=== PATIENT | female | born 1965 | race Caucasian/White ===

== ENCOUNTER 2017-01-08 14:50 | Emergency (ER) | payer OTHER, MEDICARE ==
[~2017-01-08] VITALS: Ht 162.6 cm; Wt 119.3 kg
[~2017-01-08 14:50] MED LIST: ABILIFY 2MG2 MG PO; ABILIFY2 MG PO; CLONAZEPAM1 MG PO; CLONAZEPAM2 MG PO; DILAUDID2 M1 PO; DILAUDID2 MG PO; DULOXETINE30 MG PO; ESCITALOPRAM20 MG PO; FLEXERIL PO; GABAPENTIN100 MG PO; IBU800 MG PO; KLONOPIN1 MG PO; LEVOTHYROXIN0.137 MG PO; LEVOTHYROXIN0.175 MG PO; LEXAPRO20 M1 PO; LOPRESSOR50 MG PO; MAXIPIME1 GM IV; MEDROL DOSEPAK1 PA1 PO; MEDROL DOSEPAK1 PAC PO; MEDROL4 M2 PO; NYSTOP100000 U/G TOP; OXYBUTYNIN CHLO10 MG PO; OXYCODONE AND A1 TA7 PO; OXYCODONE HYDROC5 MG PO; PERCOCET 325 MG1 TAB PO; PERCOCET 5-3251 EACH PO; POTASSIUM CHLO20 ME1 PO; TOPROL XL 25MG25 MG PO; TRAZODONE50 MG PO; VANCOCIN IV
[2017-01-08 14:57] VITALS: BP 144/83
[2017-01-08] MEDS ORDERED: DILAUDID2 M1 PO (15:29)
--- NOTE | 2017-01-08 15:29 | ED NECK/BACK PAIN COMPLAINT ---
History of Present Illness General Chief Complaint: Low Back Pain/Injury Stated Complaint: LOWER BACK PAIN Source: patient Exam Limitations: no limitations Vital Signs & Intake/Output Vital Signs & Intake/Output Vital Signs Date Time Temp Pulse Resp B/P Pulse O2 O2 Flow FiO2 Ox Delivery Rate 01/08 1457 97.6 64 20 144/83 98 Room Air Room Air Allergies Coded Allergies: latex (Intermediate, SWELLING AND ITCHING 01/08/17) morphine (Intermediate, RASH 01/08/17) Reconcile Medications Aripiprazole (Abilify) 2 MG TABLET 2 MG PO DAILY MENTAL HEALTH (Reported) Clonazepam (Klonopin) 1 MG TAB 1 MG PO TID ANXIETY (Reported) Escitalopram Oxalate (Lexapro 20MG) 20 MG TABLET 20 MG PO DAILY MENTAL HEALTH (Reported) [FLEXERIL] 5 MG 1 TAB PO TID PRN PAIN Hydromorphone HCl (Dilaudid) 2 MG TABLET 1 TAB PO BIDP PRN luis armando through pain Hydromorphone HCl (Dilaudid) 2 MG TABLET 1 TAB PO Q6HR PRN BREAKTHROUGH PAIN Ibuprofen (Ibu) 800 MG TAB 800 MG PO TID PAIN (Reported) Levothyroxine Sodium 0.175 MG TAB 1 TAB PO DAILY AC THYROID (Reported) Methylprednisolone. (Medrol) 4 MG TAB.DS.PK 1 DP PO AD INFLAMMATION 6 on day 1 then reduce by one tablet daily until gone Metoprolol Tartrate (Lopressor) 50 MG TAB 50 MG PO DAILY HTN (Reported) Oxybutynin Chloride (Oxybutynin Chloride ER) 10 MG TAB.ER.24 1 TAB PO DAILY BLADDER (Reported) Oxycodone HCl/Acetaminophen (Percocet 5-325 MG Tablet) 5 MG-325 MG TABLET 1 TAB PO Q4-6 PRN PAIN Triage Note: PT TO ED WITH C/O CHRONIC BACK PAIN, GOING [facility] IN [place], TRIED OXCODONE GOT ITCHING, SWITCHED TO NORCO 5/325MG EVERY 8 HOURS,NOT WORKING, CALLED THE CLINIC AND TOLD TO COME TO THE ED. Triage Nurses Notes Reviewed? yes Onset: Gradual Timing: chronic Quality/Severity: moderate, severe Location: lumbar spine HPI: 51-year-old female with a history of 5 back surgeries in the past comes into emergency room for further evaluation of acute exacerbation of chronic low back pain. Patient reports after her first surgery she had a laminectomy and he got secondarily infected and formed an abscess. Patient had necrotic tissue and ended up getting 4 more surgeries. This happened 3 years ago. Patient sees pain management now and is on [place] for her pain. Patient reports that recently over the past week he has not been helping as much. Patient is due to be getting another pain medication added to control her pain. Pain is sharp. Lower back. Denies any motor weakness in the lower extremity. Patient reports that intermittently he has had some bowel incontinence for many months. Patient currently has no neurosurgeon. (ANGIE WASHINGTON) Past History Travel History Traveled to [place] past 21 day No Medical History Any Pertinent Medical History? see below for history Neurological: NONE EENT: NONE Cardiovascular: hypertension Respiratory: NONE Gastrointestinal: NONE Hepatic: NONE Renal: urinary incontinence Musculoskeletal: fibromyalgia, spinal stenosis, DEGENERATIVE DISC DISEASE Psychiatric: anxiety, depression, previous suicide attempt Endocrine: hypothyroidism Blood Disorders: NONE Cancer(s): NONE COUNSELING SPECIALIST/Reproductive: NONE History of MRSA: No History of VRE: No History of CDIFF: No Surgical History Surgical History: laminectomy ( with complications), L knee replacement, C- section x 2 Psychosocial History Who do you live with Other (see notes) What is your primary language Thai Tobacco Use: Current Daily Use Daily Tobacco Use Amount/Type: => 5 Cigarettes daily ETOH Use: denies use Illicit Drug Use: denies illicit drug use Family History Family History, If Any: FATHER (CABG). , Age 60+; Cause: Myocardial infarct. MOTHER FH: bladder cancer FH: dementia Hx Contributory? No (ANGIE WASHINGTON) Review of Systems Review of Systems Constitutional: Reports: no symptoms. Eyes: Reports: no symptoms. Ears, Nose, Throat, Mouth: Reports: no symptoms. Respiratory: Reports: no symptoms. Cardiovascular: Reports: no symptoms. Gastrointestinal/Abdominal: Reports: no symptoms. Musculoskeletal: Reports: see HPI. Skin: Reports: no symptoms. Neurological/Psychological: Reports: no symptoms. All Other Systems: Reviewed and Negative (ANGIE WASHINGTON) Physical Exam Physical Exam General Appearance: well developed/nourished, mild distress Head: atraumatic Eyes: Bilateral: normal appearance, EOMI. Ears, Nose, Throat, Mouth: hearing grossly normal, moist mucous membrane Neck: normal inspection, full range of motion Respiratory: normal breath sounds, no respiratory distress Cardiovascular: regular rate/rhythm Back: normal inspection, paraspinal tenderness Extremities: normal range of motion Motor: Deficit L4 Right: No Deficit L4 Left: No Deficit L5 Right: No Deficit L5 Left: No Deficit S1 Right: No Deficit S1 Right: No Neurologic/Psych: awake, alert, oriented x 3, normal mood/affect Skin: intact, normal color, warm/dry (ANGIE WASHINGTON) Progress Differential Diagnosis: cauda equina syn, herniated disc, myofascial strain, pyelo/UTI, sciatica, spinal cord inj, thoracic outlet syn, ureterolithiasis Plan of Care: Current Medications Sig/Misty Start time Last Medication Dose Stop Time Status Admin Hydromorphone HCl 2 MG ONCE ONE 01/08 1530 UNVr (Dilaudid) 01/08 1531 Comments: 01/08/2017 3:48:39 PM Patient clinically looks well. Patient is nontoxic-appearing. Patient is in no apparent distress. There is no clinical signs of any infection. Patient has chronic pain to this region. At this time I do not feel diagnostic imaging is necessary. I offered it to the patient but she declined and agrees with plan of care. Patient needs follow-up with a new neurosurgeon. Patient had an MRI done about a year ago. No motor deficits in lower extremity. Patient understands and agrees with plan of care. (ANGIE WASHINGTON) Departure Departure Disposition: HOME OR SELF CARE Condition: Stable Clinical Impression Primary Impression: Acute exacerbation of chronic low back pain Referrals: MEÑO PENN,SHANI DANIEL MD,ELISSA (PCP/Family) Additional Instructions: Take Dilaudid tabs for breakthrough pain. Contact her pain management doctor. If symptoms persist get repeat MRI of lower back. Return if any motor weakness in the lower extremity, fever, vomitingor any other concerns worsening symptoms. Departure Forms: Customer Survey General Discharge Information Prescriptions: Current Visit Scripts Hydromorphone HCl (Dilaudid) 1 TAB PO BIDP PRN luis armando through pain #15 TAB (ANGIE WASHINGTON) PA/DIRECTOR ADVANCED Co-Sign Statement Statement: ED Attending supervision documentation- [] I saw and evaluated the patient. I have also reviewed all the pertinent lab results and diagnostic results. I agree with the findings and the plan of care as documented in the PA's/DIRECTOR ADVANCED's documentation. [X] I have reviewed the ED Record and agree with the PA's/DIRECTOR ADVANCED's documentation. [] Additions or exceptions (if any) to the PAs/DIRECTOR ADVANCED's note and plan are summarized below: [] (JESÚS PENN,ELI Darling)
== END 2017-01-08 16:02 ==
LOC: ERH 14:50
DX: M54.5 Low back pain (principal)
CPT/HCPCS: 96372

== ENCOUNTER 2017-04-05 19:52 | Emergency (ER) | payer OTHER, MEDICARE ==
[~2017-04-05] VITALS: Ht 167.6 cm; Wt 81.6 kg
[2017-04-05] MEDS ORDERED: OXYCODONE-ACET1 EAC1 PO (20:25)
[2017-04-05] MEDS ORDERED: LEVOTHYROXINE200 MC1 PO (20:26)
[2017-04-05] MEDS ORDERED: LEVOTHYROXINE25 MCG PO (20:26)
[2017-04-05] MEDS ORDERED: ESCITALOPRAM OX10 MG PO (20:37)
[2017-04-05] MEDS ORDERED: CARBIDOPA-LEVO1 EA10 PO (20:38)
[2017-04-05] MEDS ORDERED: METOPROLOL SUCC50 M2 PO (20:38)
[2017-04-05] MEDS ORDERED: FAMOTIDINE40 M1 PO (20:38)
[2017-04-05] MEDS ORDERED: FERROUS SULFAT325 M3 PO (20:39)
[2017-04-05] MEDS ORDERED: FOLIC ACID0.4 M1 PO (20:39)
--- NOTE | 2017-04-05 20:42 | ED GENERAL ADULT ---
History of Present Illness General Chief Complaint: Syncope and Near-Syncope Stated Complaint: ? SYNCOPAL EPISODE Source: patient Exam Limitations: no limitations Vital Signs & Intake/Output Vital Signs & Intake/Output Vital Signs Date Time Temp Pulse Resp B/P B/P Pulse O2 O2 Flow FiO2 Mean Ox Delivery Rate 04/06 0119 97.2 70 18 123/70 97 Room Air 04/05 2245 98.4 81 18 148/76 98 Room Air 04/05 2018 Room Air 04/05 2005 98.2 69 18 167/82 97 Room Air ED Intake and Output 04/06 0000 04/05 1200 Intake Total 0 Output Total Balance 0 Intake, Oral 0 Patient 180 lb Weight Allergies Coded Allergies: latex (Intermediate, SWELLING AND ITCHING 01/08/17) morphine (Intermediate, RASH 01/08/17) Reconcile Medications Aripiprazole (Abilify) 2 MG TABLET 1 TAB PO DAILY MENTAL HEALTH (Reported) Carbidopa/Levodopa (Carbidopa-Levo ER 25-100 Tab) 25 MG-100 MG TABLET.ER 1 TAB PO DAILY RLS (Reported) Dicyclomine Hydrochloride (Bentyl) 10 MG CAPSULE 1 CAP PO TID PRN abdominal pain Escitalopram Oxalate 10 MG TABLET 1 TAB PO DAILY MENTAL HEALTH (Reported) Famotidine 40 MG TABLET 1 TAB PO DAILY GI (Reported) Ferrous Sulfate 325 MG (65 MG IRON) TABLET 1 TAB PO DAILY SUPPLEMENT ( Reported) Folic Acid 0.4 MG TABLET 1 TAB PO DAILY SUPPLEMENT (Reported) Levothyroxine Sodium 200 MCG TABLET 1 TAB PO DAILY THYROID (Reported) Levothyroxine Sodium 25 MCG TABLET 1 TAB PO DAILY THYROID (Reported) Metoclopramide HCl (Reglan) 10 MG TABLET 1 TAB PO TID PRN nausea 30 minutes before meals and bedtime Metoprolol Succinate 50 MG TAB.ER.24H 1 TAB PO DAILY HEART/BP (Reported) Oxycodone HCl/Acetaminophen (Oxycodone-Acetaminophen 10-325) 10 MG-325 MG TABLET 1 TAB PO Q6H PAIN (Reported) Triage Note: PT BIBA FROM HOME C/O NAUSEA/VOMITING ALL DAY. STATES HAS CHRONIC BACK PAIN AND HAS NOT BEEN TAKING ANY OF HER PERCOCET TODAY D/T VOMITING. ALSO REPORTS NEAR SYNCOPE EPISODE WHILE VOMITING. Triage Nurses Notes Reviewed? yes HPI: 51-year-old female with a history of hypertension, hypothyroid, chronic back pain, spinal stenosis, degenerative disc disease, fibromyalgia and anxiety, depression presenting status post syncopal episode around 7 PM tonight. Started with nausea, vomiting, diarrhea, diffuse nonfocal abdominal pain around 8 AM this morning. Denies fevers, dysuria, vaginal discharge/bleeding. Has had no by mouth intake today, intermittent episodes of lightheadedness with walking. Attempted to ambulate bathroom and then woke up on the floor. Denies any preceding symptoms, no lightheadedness, dizziness, visual changes, shortness of breath, chest pain. Does not remember passing out, just her members waking up on the floor. Denies any headache, blurry vision, confusion, daughter at bedside and denies any altered mental status since the syncopal episode. (ELLE LOPEZ,LINO) Past History Travel History Traveled to [place] past 21 day No Medical History Any Pertinent Medical History? see below for history Neurological: NONE EENT: NONE Cardiovascular: hypertension Respiratory: NONE Gastrointestinal: NONE Hepatic: NONE Renal: urinary incontinence Musculoskeletal: fibromyalgia, spinal stenosis, DEGENERATIVE DISC DISEASE Psychiatric: anxiety, depression, previous suicide attempt Endocrine: hypothyroidism Blood Disorders: NONE Cancer(s): NONE RN CARDIAC CATH/Reproductive: NONE History of MRSA: No History of VRE: No History of CDIFF: No Surgical History Surgical History: laminectomy ( with complications), L knee replacement, C- section x 2 Psychosocial History Who do you live with Other (see notes) What is your primary language Lithuanian Tobacco Use: Never used ETOH Use: denies use Family History Family History, If Any: FATHER (CABG). , Age 60+; Cause: Myocardial infarct. MOTHER FH: bladder cancer FH: dementia Hx Contributory? No (LINO ALMEIDA PA-C) Review of Systems Review of Systems Constitutional: Denies: chills, diaphoresis, fever, malaise, weakness. EENTM: Reports: no symptoms. Respiratory: Reports: no symptoms. Cardiovascular: Reports: syncope. Denies: chest pain, edema, palpitations. GI: Reports: abdominal pain, diarrhea, nausea, vomiting. Genitourinary: Denies: discharge, dysuria, frequency, urgency. Musculoskeletal: Reports: back pain. Denies: joint pain, muscle pain. Skin: Denies: rash. Neurological/Psychological: Denies: headache, numbness, tingling, tremors. (LINO ALMEIDA PA-C) Physical Exam Physical Exam General Appearance: well developed/nourished, no apparent distress Head: atraumatic Ears, Nose, Throat: normal ENT inspection Neck: normal inspection, supple, no LAD Respiratory: normal breath sounds, lungs clear Cardiovascular: regular rate/rhythm Gastrointestinal: normal bowel sounds, soft, tenderness (diffuse, non-focal), no rebound or guarding, no CVAT Back: normal inspection, normal range of motion, no vertebral tenderness Extremities: no edema Core Measures ACS in differential dx? No CVA/TIA Diagnosis: No Severe Sepsis Present: No Septic Shock Present: No (ELLE LOPEZ,LINO) Progress Differential Diagnoses I considered the following diagnoses in my evaluation of the patient: [ Gastroenteritis versus food poisoning versus pancreatitis versus biliary versus appendicitis versus colitis versus UTI versus pyelonephritis. Differentials for syncope include cardiac arrhythmia versus cardiac valvular disease versus OH versus PE versus vasovagal versus anemia versus TIA/CVA versus intracranial hemorrhage] Plan of Care: Orders Procedure Date/time Status TROPONIN LEVEL 04/05 2345 Complete Add-on Test (ER Only) 04/05 2054 Active TROPONIN LEVEL 04/05 2045 Complete URINE 04/05 2035 Complete URINALYSIS 04/05 2035 Complete LIPASE 04/05 2035 Complete COMPREHENSIVE METABOLIC PANEL 04/05 2035 Complete CBC WITHOUT DIFFERENTIAL 04/05 2035 Complete AMYLASE 04/05 2035 Complete EKG 04/05 2007 Active Current Medications Sig/Misty Start time Last Medication Dose Stop Time Status Admin Famotidine 20 MG ONCE ONE 04/05 2230 CAN (Pepcid) 04/05 2231 Laboratory Tests 04/06/17 0030: Troponin I 0.01 04/05/172199: Urinalysis LIGHT H, Urine Color YEL, Urine Clarity CLEAR, Urine pH 6.0, Ur Specific [place] 1.025, Urine Protein 30 H, Urine Ketones NEG, Urine Nitrite NEG, Urine Bilirubin NEG, Urine Urobilinogen 0.2, Ur Leukocyte Esterase NEG, Ur Microscopic SEDIMENT EXAMINED, Urine RBC FEW H, Urine WBC RARE, Ur Epithelial Cells MOD H, Urine Mucus MANY H, Urine Hemoglobin NEG, Urine Glucose NEG, Urine Test NEGATIVE 04/05/172051: Troponin I Cancelled 04/05/172044: Anion Gap 12, Estimated GFR > 60, BUN/Creatinine Ratio 15.7, Glucose 110 H, Calcium 10.0, Total Bilirubin 0.5, AST 22, ALT 37, Alkaline Phosphatase 113, Troponin I < 0.01, Total Protein 8.4 H, Albumin 4.5, Globulin 3.9, Albumin/ Globulin Ratio 1.2, Amylase 36, Lipase 79, CBC w Diff NO MAN DIFF REQ, RBC 4.65, MCV 85.1, MCH 27.2, RDW 25.0 H, MPV 8.6, Gran % 70.5, Lymphocytes % 23.8, Monocytes % 5.1, Eosinophils % 0.1, Basophils % 0.5, Absolute Granulocytes 6.2, Absolute Lymphocytes 2.1, Absolute Monocytes 0.4, Absolute Eosinophils 0, Absolute Basophils 0, PUBS MCHC 31.9 L EKG with normal sinus rhythm, initial troponin negative. All other labs within normal limits and urine unremarkable. Patient likely with viral gastroenteritis. Suspect syncope from lack of po intake throughout the day. Will repeat a second troponin to ensure no elevation. (LINO ALMEIDA PA-C) Initial ED EKG: NSR (rate 97) (LINO ALMEIDA PA-C) Departure Departure Disposition: HOME OR SELF CARE Condition: Stable Referrals: ELISSA DANIEL MD (PCP/Family) Additional Instructions: Take 10 mg of Reglan every 8 hours as needed for nausea. Take 10 mg of Bentyl every 8 hours as needed for abdominal pain. Take adequate fluid intake. Follow -up with your primary care provider in the next 24 hours for reevaluation. Her turn to the ED for any new or worsening symptoms. Departure Forms: Customer Survey General Discharge Information Prescriptions: Current Visit Scripts Metoclopramide HCl (Reglan) 1 TAB PO TID PRN nausea 3 Days 30 minutes before meals and bedtime Dicyclomine Hydrochloride (Bentyl) 1 CAP PO TID PRN abdominal pain 3 Days (LINO ALMEIDA PA-C) Departure Clinical Impression Primary Impression: Abdominal pain Qualifiers: Abdominal location: generalized Qualified Code: R10.84 - Generalized abdominal pain Secondary Impressions: Nausea vomiting and diarrhea Syncope Qualifiers: Syncope type: vasovagal syncope Qualified Code: R55 - Syncope and collapse PA/GEOLOGICAL SCOUT Co-Sign Statement Statement: ED Attending supervision documentation- [X] I saw and evaluated the patient. I have also reviewed all the pertinent lab results and diagnostic results. I agree with the findings and the plan of care as documented in the PA's/GEOLOGICAL SCOUT's documentation. [X] I have reviewed the ED Record and agree with the PA's/GEOLOGICAL SCOUT's documentation. [] Additions or exceptions (if any) to the PAs/GEOLOGICAL SCOUT's note and plan are summarized below: [] (JESÚS PENN,ELI Darling) Critical Care Note Critical Care Note Critical Care Time: non-applicable (ELLE LOPEZ,LINO)
[2017-04-05 21:22] LABS: ABSOLUTE BASOPHIL COUNT 0 /CUMM (0.0-0.2); ABSOLUTE EOSINOPHIL COUNT 0 /CUMM (0.0-0.7); ABSOLUTE GRANULOCYTE CT 6.2 /CUMM (1.4-6.5); ABSOLUTE LYMPH COUNT 2.1 /CUMM (1.2-3.4); ABSOLUTE MONOCYTE COUNT 0.4 /CUMM (0.10-0.60); BASOPHIL % 0.5 % (0.0-2.0); EOSINOPHIL % 0.1 % (0-5); HEMATOCRIT 39.5 % (37-47); MEAN CORPUSCULAR HGB 27.2 PG (27.0-31.0); MEAN CORPUSCULAR HGB CONC 31.9 G/DL (33.0-37.0); MEAN CORPUSCULAR VOLUME 85.1 FL (81.0-99.0); MEAN PLATELET VOLUME 8.6 FL (7.4-10.4); PLATELET COUNT 194 /CUMM (130-400); RED BLOOD CELL CT 4.65 /CUMM (4.20-5.40); WHITE BLOOD CELL COUNT 8.8 /CUMM (4.8-10.8)
[2017-04-05 21:28] LABS: GRANULOCYTE % 70.5 % (42.2-75.2)
[2017-04-05] MEDS ORDERED: BENTYL10 M1 PO (23:19)
[2017-04-05] MEDS ORDERED: REGLAN10 M1 PO (23:19)
[2017-04-06 01:19] VITALS: BP 123/70
[2017-04-06] MEDS ORDERED: ZOFRAN ODT4 M1 SL (18:21)
[2017-04-06] MEDS ORDERED: LEVSIN0.125 M1 PO (18:21)
== END 2017-04-06 01:21 ==
LOC: ERH 19:52
PROVIDERS: Physician Assistant
DX: R10.84 Generalized abdominal pain (principal); R11.2 Nausea with vomiting, unspecified; R19.7 Diarrhea, unspecified
CPT/HCPCS: 81001; 81025; 93005; 93010; 96361; 96374; 96375; 96376; J2405; J2765

== ENCOUNTER 2017-04-06 16:26 | Emergency (ER) | payer OTHER, MEDICARE ==
[~2017-04-06] VITALS: Ht 162.6 cm; Wt 81.6 kg
[~2017-04-06 16:26] MED LIST changes: +BENTYL10 M1 PO; +CARBIDOPA-LEVO1 EA10 PO; +ESCITALOPRAM OX10 MG PO; +FAMOTIDINE40 M1 PO; +FERROUS SULFAT325 M3 PO; +FOLIC ACID0.4 M1 PO; +LEVOTHYROXINE200 MC1 PO; +LEVOTHYROXINE25 MCG PO; +METOPROLOL SUCC50 M2 PO; +OXYCODONE-ACET1 EAC1 PO; +REGLAN10 M1 PO
--- NOTE | 2017-04-06 17:08 | ED GI/GU/ABDOMINAL COMPLAINT ---
History of Present Illness General Chief Complaint: Nausea, Vomiting, Diarrhea Stated Complaint: NVD,SCHULTZ SEEN HERE YEST Source: patient Exam Limitations: no limitations Vital Signs & Intake/Output Vital Signs & Intake/Output Vital Signs Date Time Temp Pulse Resp B/P B/P Pulse O2 O2 Flow FiO2 Mean Ox Delivery Rate 04/06 1848 97.6 100 20 138/80 97 Room Air 04/06 1631 99.1 94 18 161/112 97 Room Air ED Intake and Output 04/07 0000 04/06 1200 Intake Total Output Total Balance Patient 180 lb Weight Weight Reported by Patient Measurement Method Allergies Coded Allergies: latex (Intermediate, SWELLING AND ITCHING 01/08/17) morphine (Intermediate, RASH 01/08/17) Reconcile Medications Aripiprazole (Abilify) 2 MG TABLET 1 TAB PO DAILY MENTAL HEALTH (Reported) Carbidopa/Levodopa (Carbidopa-Levo ER 25-100 Tab) 25 MG-100 MG TABLET.ER 1 TAB PO DAILY RLS (Reported) Dicyclomine Hydrochloride (Bentyl) 10 MG CAPSULE 1 CAP PO TID PRN abdominal pain Escitalopram Oxalate 10 MG TABLET 1 TAB PO DAILY MENTAL HEALTH (Reported) Famotidine 40 MG TABLET 1 TAB PO DAILY GI (Reported) Ferrous Sulfate 325 MG (65 MG IRON) TABLET 1 TAB PO DAILY SUPPLEMENT ( Reported) Folic Acid 0.4 MG TABLET 1 TAB PO DAILY SUPPLEMENT (Reported) Hyoscyamine (Levsin) 0.125 MG TABLET 1 TAB PO Q4 PRN ABDOMINAL SPASMS Levothyroxine Sodium 200 MCG TABLET 1 TAB PO DAILY THYROID (Reported) Levothyroxine Sodium 25 MCG TABLET 1 TAB PO DAILY THYROID (Reported) Metoclopramide HCl (Reglan) 10 MG TABLET 1 TAB PO TID PRN nausea 30 minutes before meals and bedtime Metoprolol Succinate 50 MG TAB.ER.24H 1 TAB PO DAILY HEART/BP (Reported) Ondansetron (Zofran Odt) 4 MG TAB.RAPDIS 1 TAB SL TID PRN NAUSEA Oxycodone HCl/Acetaminophen (Oxycodone-Acetaminophen 10-325) 10 MG-325 MG TABLET 1 TAB PO Q6H PAIN (Reported) Triage Note: 51 YO FEMALE TO TRIAGE C/O NVD SINCE YESTERDAY. ALSO C/O MANDO. STATES SHE WAS SEEN HIS YESTERDAY FOR SAME AND FELT BETTER UPON DISCHARGE. WAS GIVEN BENTYL AND REGLAN BUT HAS BEEN VOMITING THEM UP AT HOME. C/O ABD PAIN ALL OVER ABD. Triage Nurses Notes Reviewed? yes ? N Is pt currently ? No Onset: Gradual Duration: day(s): (2) Timing: no prior history Quality/Severity: sharpness Severity Numbers: 8 Location: generalized abdomen Radiation: no radiation Activities at Onset: none Prior Abdominal Problems: none No Modifying Factors: none HPI: Patient is a 51-year-old female with history of chronic back pain, chronic urinary incontinence presenting to the emergency department with chief complaint of generalized abdominal pain, nausea vomiting and diarrhea that started yesterday morning around 8 AM. She was seen and evaluated here in the emergency department yesterday and was released around 1 AM this morning. She was feeling slightly improved and when they discharged her but has been unable to keep anything down. Nothing seems to make it better or worse. She also reports a moderate frontal throbbing headache. No visual changes. Denies any urinary frequency or urgency or dysuria. No blood in the vomit or diarrhea. No sick contacts or recent travel. (PREM STEVEN) Past History Travel History Traveled to [place] past 21 day No Medical History Any Pertinent Medical History? 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 , Age 60+; Cause: Myocardial infarct. MOTHER FH: bladder cancer FH: dementia Hx Contributory? No (PREM STEVEN) Review of Systems Review of Systems Constitutional: Reports: no symptoms. Comments Review of systems: See HPI, All other systems negative. Constitutional, no chills fever or weight loss HEENT: No visual changes no sore throat no congestion Cardiovascular: No chest pain ,palpitation Skin, no jaundice no rashes Respiratory: No dyspnea cough sputum or hemoptysis GI: POS NAUSEA, VOMITING AND DIARRHEA : No dysuria No hematuria Muscle skeletal: no neck pain, Neurologic: No numbness no confusion Psych: No stress anxiety Immunology: No splenectomy or history of AIDS (JUANIS OLIVERA,PREM) Physical Exam Physical Exam General Appearance: well developed/nourished, no apparent distress, alert, comfortable Gastrointestinal: normal bowel sounds, soft, tenderness Comments: Well-developed well-nourished person in no acute distress HEENT: Pupils equally round and reactive to light and accommodation. Nose is atraumatic. Pharynx normal. No swelling or edema. DRY ORAL MUCOSA. Neck:NORMAL INSPECTION Back: Nontender, no CVA tenderness. Cardiovascular: Regular rate and rhythms no murmurs rubs or gallops, normal JVP Respiratory: Chest nontender. No respiratory distress.breath sounds clear to auscultation bilaterally Abdomen: Soft, DIFFUSE TENDERNESS WITH MILD GAURDING,nondistended, no appreciable organomegaly. Normal bowel sounds. No ascites Extremity: No edema Neuro: Alert oriented x3 Skin: No appreciable rash on exposed skin, skin is warm and dry. Psych: Mood and affect is normal, memory and judgment is normal. Core Measures ACS in differential dx? No Severe Sepsis Present: No Septic Shock Present: No (PREM STEVEN) Progress Differential Diagnosis: appendicitis, biliary colic, cholecystitis, diverticulitis, gastritis, ischemic bowel, ovarian cyst, ovarian torsion, peptic ulcer, PUD/GERD, UTI/pyelo, VIRAL GASTROENTERITIS Plan of Care: Orders Procedure Date/time Status URINALYSIS 04/06 1708 Complete LIPASE 04/06 1708 Complete LACTIC ACID 04/06 1708 Complete COMPREHENSIVE METABOLIC PANEL 04/06 1708 Complete CBC WITHOUT DIFFERENTIAL 04/06 1708 Complete AMYLASE 04/06 1708 Complete Laboratory Tests 04/06/172007: Lactic Acid Cancelled 04/06/17 1730: Urine Color YEL, Urine Clarity HAZY H, Urine pH 5.5, Ur Specific [place] 1.020, Urine Protein TRACE H, Urine Ketones NEG, Urine Nitrite NEG, Urine Bilirubin NEG, Urine Urobilinogen 0.2, Ur Leukocyte Esterase NEG, Ur Microscopic SEDIMENT EXAMINED, Urine RBC RARE, Urine WBC 3-5 H, Ur Epithelial Cells MANY H, Urine Bacteria FEW H, Urine Hemoglobin TRACE-INTACT, Urine Glucose NEG 04/06/17 1710: Anion Gap 13, Estimated GFR > 60, BUN/Creatinine Ratio 15.0, Glucose 129 H, Lactic Acid 1.6, Calcium 9.6, Total Bilirubin 0.5, AST 36, ALT 40, Alkaline Phosphatase 113, Total Protein 8.8 H, Albumin 4.5, Globulin 4.3 H, Albumin/ Globulin Ratio 1.0 L, Amylase 45, Lipase 148, CBC w Diff NO MAN DIFF REQ, RBC 4.51, MCV 86.0, MCH 27.0, RDW 24.6 H, MPV 8.0, Gran % 69.1, Lymphocytes % 23.3, Monocytes % 5.2, Eosinophils % 1.9, Basophils % 0.5, Absolute Granulocytes 7.1 H, Absolute Lymphocytes 2.4, Absolute Monocytes 0.5, Absolute Eosinophils 0.2, Absolute Basophils 0.1, PUBS MCHC 31.4 L Diagnostic Imaging: Viewed by Me: CT Scan. Discussed w/RAD: CT Scan. Radiology Impression: PATIENT: VADIM BRYSON PRESENT AGE: 51 PATIENT ACCOUNT NO: [id number] : 64 LOCATION: [facility] ORDERING PHYSICIAN: PREM OLIVERA SERVICE DATE: 04/06/17 EXAM TYPE: CAT - CT ABD & PELVIS W IV CONTRAST EXAMINATION: CT ABDOMEN AND PELVIS WITH CONTRAST CLINICAL INFORMATION: Nausea, vomiting, diarrhea. Worsening pain. COMPARISON: Pelvic CT 04/15/2016. TECHNIQUE: Multidetector volumetric imaging was performed of the abdomen and pelvis before and after the IV administration of 94 mL of Optiray 320 intravenous contrast. Sagittal and coronal reformatted images were obtained on the technologist's workstation. DLP: 1294 mGy-cm FINDINGS: LUNG BASES: The visualized lung bases are unremarkable. LIVER, GALLBLADDER, AND BILIARY TREE: The liver is normal in size, shape, and attenuation. No focal hepatic lesion or biliary ductal dilatation is present. The gallbladder is unremarkable with no evidence of radiopaque gallstones, gallbladder wall thickening, or obvious pericholecystic inflammatory changes. PANCREAS: Unremarkable. SPLEEN: Unremarkable. ADRENAL GLANDS: Unremarkable. KIDNEYS AND URETERS: The kidneys are normal in size, shape, and attenuation. No hydronephrosis, hydroureter, or calculi seen. No perinephric stranding. BLADDER: Unremarkable. GASTROINTESTINAL TRACT: The stomach is unremarkable. Small duodenal diverticulum noted. The remainder of the small bowel is unremarkable. No dilated loops of bowel or evidence of obstruction. There is colonic diverticulosis without evidence of diverticulitis. A majority of the colon is decompressed which limits evaluation for wall thickening. No significant adjacent inflammatory changes. No free air or free fluid. ABDOMINAL WALL: No significant hernia is appreciated. LYMPH NODES: Normal. VASCULAR: Unremarkable. PELVIC VISCERA: The uterus and adnexa are unremarkable. OSSEOUS STRUCTURES: No acute or suspicious osseous abnormality. IMPRESSION: No acute findings of the abdomen or pelvis. No obstruction. Diverticulosis without diverticulitis. Decompression of the colon limits evaluation for wall thickening, but no acute adjacent inflammatory changes are seen. DICTATED BY: DEJAH BUTLER MD Initial ED EKG: none Comments: 04/06/2017 6:21:44 PM patient feeling much improved after fluids, pain medication and antinausea medication. Patient tolerating by mouth. She was informed of all lab work results and imaging study results. Likely viral in nature. Patient will be sent home with Levsin prescription as well as Zofran, both sublingual tablets. She'll return for any worsening symptoms. She'll increase diET tolerated. Blood pressures likely elevated secondary to pain. We will reassess prior to discharge. Repeat blood pressure is 138/80. (JUANIS OLIVERA,PREM) Departure Departure Disposition: HOME OR SELF CARE Condition: Stable Clinical Impression Primary Impression: Nausea and vomiting Qualifiers: Vomiting type: unspecified Vomiting Intractability: non-intractable Qualified Code: R11.2 - Nausea with vomiting, unspecified Secondary Impressions: Diarrhea Qualifiers: Diarrhea type: unspecified type Qualified Code: R19.7 - Diarrhea, unspecified Hypertension Qualifiers: Hypertension type: essential hypertension Qualified Code: I10 - Essential (primary) hypertension Referrals: ELISSA DANIEL MD (PCP/Family) Additional Instructions: Follow-up with your primary care physician call to make an appointment. Increase fluids. Take Levsin and Zofran as prescribed. Return for worsening symptoms or concerns. Departure Forms: Customer Survey General Discharge Information Prescriptions: Current Visit Scripts Hyoscyamine (Levsin) 1 TAB PO Q4 PRN ABDOMINAL SPASMS #40 TAB Ondansetron (Zofran Odt) 1 TAB SL TID PRN NAUSEA #10 TAB (PREM STEVEN) PA/CLERICAL ASSIGNER Co-Sign Statement Statement: ED Attending supervision documentation- [] I saw and evaluated the patient. I have also reviewed all the pertinent lab results and diagnostic results. I agree with the findings and the plan of care as documented in the PA's/CLERICAL ASSIGNER's documentation. [X] I have reviewed the ED Record and agree with the PA's/CLERICAL ASSIGNER's documentation. [] Additions or exceptions (if any) to the PAs/CLERICAL ASSIGNER's note and plan are summarized below: [] (AGNES PENN,CONNIE)
[2017-04-06 17:19] LABS: ABSOLUTE BASOPHIL COUNT 0.1 /CUMM (0.0-0.2); ABSOLUTE EOSINOPHIL COUNT 0.2 /CUMM (0.0-0.7); ABSOLUTE GRANULOCYTE CT 7.1 /CUMM (1.4-6.5); ABSOLUTE LYMPH COUNT 2.4 /CUMM (1.2-3.4); ABSOLUTE MONOCYTE COUNT 0.5 /CUMM (0.10-0.60); BASOPHIL % 0.5 % (0.0-2.0); EOSINOPHIL % 1.9 % (0-5); GRANULOCYTE % 69.1 % (42.2-75.2); HEMATOCRIT 38.8 % (37-47); MEAN CORPUSCULAR HGB CONC 31.4 G/DL (33.0-37.0); PLATELET COUNT 187 /CUMM (130-400); RBC DISTRIBUTION WIDTH 24.6 % (11.5-14.5); RED BLOOD CELL CT 4.51 /CUMM (4.20-5.40); WHITE BLOOD CELL COUNT 10.2 /CUMM (4.8-10.8)
--- NOTE | 2017-04-06 17:37 | CT SCAN REPORT ---
EXAMINATION: CT ABDOMEN AND PELVIS WITH CONTRAST CLINICAL INFORMATION: Nausea, vomiting, diarrhea. Worsening pain. COMPARISON: Pelvic CT 04/15/2016. TECHNIQUE: Multidetector volumetric imaging was performed of the abdomen and pelvis before and after the IV administration of 94 mL of Optiray 320 intravenous contrast. Sagittal and coronal reformatted images were obtained on the technologist's workstation. DLP: 1294 mGy-cm FINDINGS: LUNG BASES: The visualized lung bases are unremarkable. LIVER, GALLBLADDER, AND BILIARY TREE: The liver is normal in size, shape, and attenuation. No focal hepatic lesion or biliary ductal dilatation is present. The gallbladder is unremarkable with no evidence of radiopaque gallstones, gallbladder wall thickening, or obvious pericholecystic inflammatory changes. PANCREAS: Unremarkable. SPLEEN: Unremarkable. ADRENAL GLANDS: Unremarkable. KIDNEYS AND URETERS: The kidneys are normal in size, shape, and attenuation. No hydronephrosis, hydroureter, or calculi seen. No perinephric stranding. BLADDER: Unremarkable. GASTROINTESTINAL TRACT: The stomach is unremarkable. Small duodenal diverticulum noted. The remainder of the small bowel is unremarkable. No dilated loops of bowel or evidence of obstruction. There is colonic diverticulosis without evidence of diverticulitis. A majority of the colon is decompressed which limits evaluation for wall thickening. No significant adjacent inflammatory changes. No free air or free fluid. ABDOMINAL WALL: No significant hernia is appreciated. LYMPH NODES: Normal. VASCULAR: Unremarkable. PELVIC VISCERA: The uterus and adnexa are unremarkable. OSSEOUS STRUCTURES: No acute or suspicious osseous abnormality. IMPRESSION: No acute findings of the abdomen or pelvis. No obstruction. Diverticulosis without diverticulitis. Decompression of the colon limits evaluation for wall thickening, but no acute adjacent inflammatory changes are seen.
[2017-04-06] MEDS ORDERED: LEVSIN0.125 M1 PO (18:21)
[2017-04-06] MEDS ORDERED: ZOFRAN ODT4 M1 SL (18:21)
[2017-04-06 18:48] VITALS: BP 138/80
== END 2017-04-06 19:16 ==
LOC: ERH 16:26
PROVIDERS: Physician Assistant
DX: R11.2 Nausea with vomiting, unspecified (principal); R19.7 Diarrhea, unspecified; I10 Essential (primary) hypertension; Z72.0 Tobacco use
CPT/HCPCS: 74177; 81001; 96361; 96374; 96375; 96376; J2405; J2765

== ENCOUNTER 2017-04-07 12:12 | Emergency (ER) | payer OTHER, MEDICARE ==
[~2017-04-07] VITALS: Ht 162.6 cm; Wt 127.0 kg
[~2017-04-07 12:12] MED LIST changes: +LEVSIN0.125 M1 PO; +ZOFRAN ODT4 M1 SL
--- NOTE | 2017-04-07 12:30 | ED GI/GU/ABDOMINAL COMPLAINT ---
History of Present Illness General Chief Complaint: Nausea, Vomiting, Diarrhea Stated Complaint: NVD, SEEN HERE YESDTERDAY AND DAY BEFORE FOR SAME Source: patient, family, old records Exam Limitations: no limitations Vital Signs & Intake/Output Vital Signs & Intake/Output ED Intake and Output 04/08 0000 04/07 1200 Intake Total 1100 Output Total Balance 1100 Intake, IV 1100 Patient 280 lb Weight Weight Reported by Patient Measurement Method Allergies Coded Allergies: latex (Intermediate, SWELLING AND ITCHING 01/08/17) morphine (Intermediate, RASH 01/08/17) Reconcile Medications Aripiprazole (Abilify) 2 MG TABLET 1 TAB PO DAILY MENTAL HEALTH (Reported) Carbidopa/Levodopa (Carbidopa-Levo ER 25-100 Tab) 25 MG-100 MG TABLET.ER 1 TAB PO DAILY RLS (Reported) Dicyclomine Hydrochloride (Bentyl) 10 MG CAPSULE 1 CAP PO TID PRN abdominal pain Escitalopram Oxalate 10 MG TABLET 1 TAB PO DAILY MENTAL HEALTH (Reported) Famotidine 40 MG TABLET 1 TAB PO DAILY GI (Reported) Ferrous Sulfate 325 MG (65 MG IRON) TABLET 1 TAB PO DAILY SUPPLEMENT ( Reported) Folic Acid 0.4 MG TABLET 1 TAB PO DAILY SUPPLEMENT (Reported) Hyoscyamine (Levsin) 0.125 MG TABLET 1 TAB PO Q4 PRN ABDOMINAL SPASMS Levothyroxine Sodium 200 MCG TABLET 1 TAB PO DAILY THYROID (Reported) Levothyroxine Sodium 25 MCG TABLET 1 TAB PO DAILY THYROID (Reported) Metoclopramide HCl (Reglan) 10 MG TABLET 1 TAB PO TID PRN nausea 30 minutes before meals and bedtime Metoprolol Succinate 50 MG TAB.ER.24H 1 TAB PO DAILY HEART/BP (Reported) Ondansetron (Zofran Odt) 4 MG TAB.RAPDIS 1 TAB SL TID PRN NAUSEA Oxycodone HCl/Acetaminophen (Oxycodone-Acetaminophen 10-325) 10 MG-325 MG TABLET 1 TAB PO Q6H PAIN (Reported) Triage Note: 51 YO FEMALE DEANNA FROM HOME. PT WAS SEEN IN ER YESTERDAY AND THE DAY BEFORE FOR SAME S/S. PT RECIEVED CT SCAN AND BLOOD WORK YESTERDAY AND IT ALL CAME BACK NORMAL PER PT. PT STATES SHE IS STIL VOMTING AND HAD ABD PAIN AND BACK PAIN. Triage Nurses Notes Reviewed? yes ? N Is pt currently ? No Onset: Gradual Duration: day(s): (3) Timing: recent history Quality/Severity: cramping, sharpness Severity Numbers: 8 Location: generalized abdomen Radiation: no radiation Activities at Onset: 2 days,n/v/d Prior Abdominal Problems: similar symptoms Past Sexual History: Unobtainable at this time Modifying Factors: Improves With: other (dilaudid). HPI: Patient is a 51-year-old female presenting to the emergency department with chief complaint of generalized abdominal pain, nausea vomiting or diarrhea nothing going on for the past 3 days. She reports that she has been seen and evaluated here for similar symptoms the past 2 days. She feels better at discharge Each time and then she reports that this morning she has been unable to keep anything down. She reports that she's been vomiting every half hour since she woke up is all diarrhea. No blood in the vomit or stool. She is also reporting diffuse abdominal pain. Cramping and intermittently sharp and stabbing. No urinary symptoms. She was feeling much improved after IV fluids and Dilaudid yesterday. She is requesting that we give her the same thing that she received yesterday. No fevers or chills. (PREM STEVEN) Past History Travel History Traveled to [place] past 21 day No Medical History Any Pertinent Medical History? 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 , Age 60+; Cause: Myocardial infarct. MOTHER FH: bladder cancer FH: dementia Hx Contributory? No (PREM STEVEN) Review of Systems Review of Systems Constitutional: Reports: no symptoms. Comments Review of systems: See HPI, All other systems negative. Constitutional, no chills fever or weight loss HEENT: No visual changes no sore throat no congestion Cardiovascular: No chest pain ,palpitation , orthopnea or ankle swelling Skin, no jaundice no rashes Respiratory: No dyspnea cough sputum or hemoptysis GI: Positive nausea, vomiting and diarrhea : No dysuria No hematuria Muscle skeletal: no back pain, no neck pain, Neurologic: No numbness no confusion and no headaches Psych: No stress anxiety or depression,. Heme/endocrine: No bruising no bleeding no polyuria or polydipsia Immunology: No splenectomy or history of AIDS (PREM STEVEN) Physical Exam Physical Exam General Appearance: well developed/nourished, no apparent distress, alert, awake , comfortable Gastrointestinal: normal bowel sounds, soft, tenderness Comments: Obese person in no acute distress HEENT: Pupils equally round and reactive to light and accommodation. Nose is atraumatic. Pharynx normal. No swelling or edema. Moist oral mucosa. Neck: Normal inspection Back: Nontender, no CVA tenderness. Cardiovascular: Regular rate and rhythms no murmurs rubs or gallops, normal JVP Respiratory: Chest nontender. No respiratory distress.breath sounds clear to auscultation bilaterally Abdomen: Soft, obese, diffusely tender without rebound or guarding, nontender nondistended, no appreciable organomegaly. Normal bowel sounds. No ascites Extremity: No edema Neuro: Alert oriented x3 Skin: No appreciable rash on exposed skin, skin is warm and dry. Psych: Mood and affect is normal, memory and judgment is normal. Core Measures ACS in differential dx? No Severe Sepsis Present: No Septic Shock Present: No (PREM STEVEN) Progress Differential Diagnosis: appendicitis, cholecystitis, diverticulitis, gastritis, ischemic bowel, pancreatitis Plan of Care: Current Medications Sig/Misty Start time Last Medication Dose Stop Time Status Admin Pantoprazole Sodium 40 MG ONCE ONE 04/07 1245 UNVr 04/07 (Protonix) 04/07 1246 1237 Ketorolac 30 MG ONCE ONE 04/07 1230 UNVr 04/07 Tromethamine 04/07 1231 1237 (Toradol) Promethazine HCl 25 MG ONCE ONE 04/07 1230 UNVr 04/07 (Phenergen) 04/07 1231 1237 Sodium Chloride 1,000 ML BOLUS ONE 04/07 1230 UNVr 04/07 (Normal Saline 0.9%) 04/07 1329 1237 Initial ED EKG: none Comments: 04/07/2017 12:43:36 PM on arrival patient is afebrile in no acute distress with diffuse abdominal pain. I saw this patient yesterday for the same symptoms. A complete workup was done yesterday and the day prior revealing no acute findings. No elevation in white blood cell count. No findings on CAT scan. Electrolytes were intact. Patient immediately requesting pain medication for her abdominal pain. According to CT CAFE ASSISTANT patient has had multiple pain medication prescriptions filled by different providers over the past year. She currently has an active prescription for 120 Percocet that was filled on March 11. I do not feel comfortable giving this patient any narcotic IV medications. I will treat patient with fluids, antiemetics, will also try Protonix as if she does have gastritis and might help. Patient is to follow-up with gastroenterology or pain management for chronic abdominal pain. This could be all from a viral syndrome as well. Patient feeling improved after IV fluids, medications. As explained to the patient cannot continue to give IV narcotic medication for chronic pain. She'll follow up with a GI specialist if symptoms persist. (PREM STEVEN) Departure Departure Time of Disposition: 1514 Disposition: HOME OR SELF CARE Condition: Stable Clinical Impression Primary Impression: Abdominal pain Qualifiers: Abdominal location: generalized Qualified Code: R10.84 - Generalized abdominal pain Referrals: ELISSA DANIEL MD (PCP/Family) LAURIE PATTERSON MD Additional Instructions: Follow-up with gastroenterology call to make an appointment. Continue taking Levsin and Zofran as prescribed. Increase fluids. Return for worsening symptoms or concerns. Departure Forms: Customer Survey D/C INS-APPENDICITIS EXCLUSION General Discharge Information (PREM STEVEN) PA/POLYGRAPH TECHNICIAN Co-Sign Statement Statement: ED Attending supervision documentation- I saw and evaluated the patient. I have also reviewed all the pertinent lab results and diagnostic results. I agree with the findings and the plan of care as documented in the PA's/POLYGRAPH TECHNICIAN's documentation. X I have reviewed the ED Record and agree with the PA's/POLYGRAPH TECHNICIAN's documentation. [] Additions or exceptions (if any) to the PAs/POLYGRAPH TECHNICIAN's note and plan are summarized below: [] (DAVEY PENN,QUINTIN)
[2017-04-07 15:12] VITALS: BP 172/91
== END 2017-04-07 15:57 ==
LOC: ERH 12:12
DX: R10.84 Generalized abdominal pain (principal)
CPT/HCPCS: 96361; 96365; 96375; J0131; J1885; J2550

== ENCOUNTER → 2018-04-01 | Day surgery (SDC) | payer OTHER, MEDICARE ==
[~2018-04-01] VITALS: Ht 162.6 cm; Wt 127.0 kg
[~2018-04-01] MED LIST changes: +AUGMENTIN 875-1 EACH PO; +BACLOFEN10 M1 PO; +CLONIDINE HCL0.1 MG PO; +KETOROLAC TROME10 M1 PO; +NAPROXEN500 M2 PO; +OXYCODONE HCL15 M1 PO; +PROMETHAZINE HC25 M3 PO; +ZOFRAN4 M2 PO
--- NOTE | 2018-04-01 16:31 | Operative Report ---
Operative/Inv Procedure Report Surgery Date: 04/01/18 Name of Procedure: cystocele repair with mesh and urethral sling, cystoscopy Pre-Operative Diagnosis: cystocele and ADA Post-Operative Diagnosis: same Estimated Blood Loss: 50ml to 100ml Surgeon/Finger Grip Machine Operator: Lavonne Urena MD Anesthesia: laryngeal mask airway Implants: vaginal mesh Complications: none Condition: stable Operative Indication: cystocele and stress incontinence Operative/Procedure Note Note: 52-year-old female with a history of cystocele and stress urinary incontinence. Vaginal bulge was bothersome as well as the urinary leakage. She was given the options of pessary versus surgical repair. She was given the risks benefits and alternatives of surgical repair and she wished to proceed. Vaginal mesh and the risks of later complications were also discussed. She was also given literature to review. Consent was signed in the holding area. Patient was taken to the operating room and placed on the operating table in supine position. Timeout was performed. IV antibiotics were infused. LMA anesthesia was begun and patient was placed in the dorsolithotomy position. Genitalia region was shaved prior to prepping and draping in the standard sterile fashion. Olson catheter was placed beginning of the surgery and the bladder was emptied and the Olson was placed in the abdomen. Since retractor was placed and [place] retractor was 6 Mosier stays. 1% lidocaine was infiltrated into the anterior vaginal wall from the bladder neck down to the cervix. Incision was made and the bladder was dissected out without apparent injury to the bladder. The Digitek's suture placement device was then used to place 2-0 Prolene into the sacrospinous ligament on the patient's left and right side. Same was done at the level of the bladder neck into the arcus tendineus. The Restoril mesh was then opened and placed through the 4 anchoring sutures. Sutures were tied down and the mesh was secured at the proximal portion with 2-0 Vicryl and the bladder neck with 2-0 Vicryl. Methylene blue 10 mL had been given approximately 10 minutes prior to this. Cystoscopy was performed and the bladder was globally inspected. There are no abnormalities or issues noted. The ureteral orifices were easily identified and excellent ureteral efflux was seen emanating from both orifices. The Olson catheter was placed back into the bladder. Attention was then turned to the sling portion of the case. Percent lidocaine was infiltrated into the anterior vaginal wall beneath the urethra. Incision was made need the urethra approximately 3 inches in length. The vaginal flaps are created taking care not to injure the urethra. The Altis sling kit was then opened and the trochars provided used to place the sling in a tension-free manner. DeBakey was placed between the sling and the urethra to ensure that the sling was not too tight. The area was grossly irrigated with bacitracin irrigation. There was no mesh in the vaginal fornices. The Prolene tightening suture was then cut and the incision was closed with 3-0 Vicryl locked every third suture. Olson catheter was removed again and a cystoscopy was performed and there is no mesh in the bladder or the urethra. The bladder was emptied. 2 inch vaginal packing impregnated with bacitracin ointment was placed in the vaginal vault. Sponge and needle count were correct at the end of the case. Patient tolerated the procedure well no hypotensive or cardiac events. Findings: No mesh in the bladder urethra or fornices. Excellent ureteral efflux bilaterally. Discharge Disposition: PACU
--- NOTE | 2018-04-01 16:48 | RADIOLOGY REPORT ---
EXAMINATION: Intraoperative fluoroscopy CLINICAL INFORMATION: InterStim COMPARISON: CT abdomen pelvis 08/08/2017 TECHNIQUE: Intraoperative fluoroscopy was provided for use by Dr. Urena. A total of 6 images were saved to PACS. A radiologist was not present during imaging. TOTAL FLUOROSCOPIC TIME: 0.36 minutes. FINDINGS\E\IMPRESSION: Intraoperative fluoroscopy provided for use by Dr. Urena. Please see operative note for detailed findings.
--- NOTE | 2018-04-01 17:27 | Operative Report ---
Operative/Inv Procedure Report Surgery Date: 04/01/18 Name of Procedure: InterStim stage I and 2 Pre-Operative Diagnosis: Urge urinary incontinence Post-Operative Diagnosis: Same Estimated Blood Loss: less than 50ml Surgeon/Communication Studies Professor: Lavonne Urena MD Anesthesia: local monitored anesthesi Implants: InterStim sacral neuromodulation lead and battery Complications: None Condition: Stable Operative Indication: Urge urinary incontinence Operative/Procedure Note Note: She was consented for InterStim stage I and 2 after having a moderately successful percutaneous InterStim trial. She was given the risks benefits and alternatives of the InterStim stage I and 2. All questions were answered and the consent was signed. Patient was identified in the holding area and brought to the operating room placed on the operating table in the prone position. Timeout was performed and IV antibiotics were infused. She was given mild sedation so she could be responsive to the InterStim stimulation. Back was prepped with ChloraPrep followed by Ioban. She was draped in the standard sterile fashion. Landmarks were marked out using fluoroscopic guidance. Lidocaine was injected into the 9 cm marking on the right side. She had the needle at the S4 location. As a result the needle was then placed higher and fluoroscopy was used throughout the case anterior posteriorly as well as laterally. This was to check the position of the needle. On the right side the needle was placed well at the level of 11 cm and 2 cm lateral to the midline. The stimulation was performed and the patient felt it in the rectal area. This was then chosen as the area to target and the left side was targeted as well and that seemed to be more sensitive with sensory and motor response. As result the guidewire was placed on the left side through the needle. Incision was made with the blade followed by the dilator. The dilator was placed with the marking at the middle of the sacrum. The lead was then placed with the curved stylette. The lead was seen to be in good position in all 4 leads were tested. She had good sensation and motor response. The IV sedation was then deepened so the patient would no longer be awake. A pocket was made on the right side and the lead was tunneled through and was attached to the battery. The lead was cleansed prior to placing it into the battery and tightened with the hex wrench. The battery was placed into the pocket that was created and the battery integrity was checked for conduction. It was in good working order. The incision was closed with interrupted 3-0 Vicryl sutures followed by 4-0 Monocryl running subcutaneous. Dressing was applied with the Steri-Strips and Tegaderm. The puncture site for the needle was closed with Dermabond. Followed by Steri-Strips and Tegaderm as well. The sponge and needle count were correct at the end of this portion of the case. Patient tolerated the procedure well. Findings: Good motor and sensory response Discharge Disposition: Same Day Admissions
== END ==
LOC: STS 01:42
DX: N39.41 Urge incontinence (principal); R35.0 Frequency of micturition; F17.200 Nicotine dependence, unspecified, uncomplicated; E03.9 Hypothyroidism, unspecified; E66.9 Obesity, unspecified; M96.1 Postlaminectomy syndrome, not elsewhere classified; Z68.42 Body mass index [BMI] 45.0-49.9, adult
CPT/HCPCS: 72170; C1767; C1778; C1787; C1894; J0690; J2250

== ENCOUNTER 2018-04-21 11:28 | Observation (INO) | payer OTHER, MEDICARE ==
[~2018-04-21] VITALS: Ht 160 cm; Wt 117.9 kg
--- NOTE | 2018-04-21 12:18 | ED GI/GU/ABDOMINAL COMPLAINT ---
History of Present Illness General Chief Complaint: Nausea, Vomiting, Diarrhea Stated Complaint: N/V/D Source: patient Exam Limitations: no limitations Vital Signs & Intake/Output Vital Signs & Intake/Output Vital Signs Date Time Temp Pulse Resp B/P B/P Pulse O2 O2 Flow FiO2 Mean Ox Delivery Rate 04/22 0034 98.2 82 18 150/75 97 04/21 2256 80 18 156/79 97 Room Air ED Intake and Output 04/22 0000 04/21 1200 Intake Total 1000 1000 Output Total 200 Balance 800 1000 Intake, IV 1000 1000 Number 1 Bowel Movements Output, Urine 200 Patient 260 lb 260 lb Weight Allergies Coded Allergies: latex (Intermediate, SWELLING AND ITCHING 03/31/18) morphine (Intermediate, RASH 03/31/18) Triage Note: 53 YEAR OLD FEMALE BIBA C/O DIFFUSE ABD PAIN, N/V/D SINCE WEDNESDAY. PT REPORTS SHE WAS SEEN HERE WEDNESDAY AND WEDNESDAY FOR SAME SYMPTOMS AND DISCHARGED WITH ZOFRAN AND PHENERGAN. PT REPORTS NO RELIEF WITH PRESCRIBED MEDICATIONS. MEDIC ON SCENE ADMINISTERED ZOFRAN 4MG IV EN ROUTE, PT REPORTS NO RELIEF AT THIS TIME. NS BOLUS INFUSING ON ARRIVAL, PT REPORTS SHE HAS NOT URINATED SINCE LAST NIGHT. Triage Nurses Notes Reviewed? yes LMP (ages 10-50): unknown ? N Is pt currently ? No Onset: Abrupt Duration: day(s): (5-6), constant, continues in ED, getting worse Timing: multiple episodes today Quality/Severity: cramping Severity Numbers: 9 Location: generalized abdomen Radiation: no radiation Activities at Onset: none Prior Abdominal Problems: similar symptoms Past Sexual History: Unobtainable at this time No Modifying Factors: none Associated Symptoms: abdominal pain, diaphoresis, nausea/vomiting HPI: 53 year old female past medical history of hypertension, gastritis, fibromyalgia , chronic back pain presents for reevaluation of nausea vomiting diarrhea and abdominal pain. Patient states symptoms started 5 or 6 days ago and been persistent. She's been seen in emergency room and 2 other times the past few days for similar symptoms. She states that when she gets the IV meds her symptoms improved but then get worse again once the meds wear off. She's been taking oral Phenergan and oral Zofran at home without any improvement. She reports that her abdominal pain is located diffusely in her abdomen described as cramping. The diarrhea is watery without blood. No recent antibiotics or recent surgery or sick contacts. No travel. No fever. The last time she was here she was diagnosed with a mild diffuse colitis. No chest pain shortness of breath urinary symptoms. She reports she is not able take her chronic opioid pain medications because of the nausea and vomiting. (Laith Stone) Reconcile Medications Baclofen 10 MG TABLET 1 TAB PO Q8H PRN MUSCLE SPASMS (Reported) Escitalopram Oxalate (Lexapro) 20 MG TABLET 1 TAB PO DAILY MENTAL HEALTH ( Reported) Levothyroxine Sodium 200 MCG TABLET 1 TAB PO DAILY THYROID (Reported) Ondansetron (Zofran Odt) 4 MG TAB.RAPDIS 1 TAB SL TID PRN nausea Ondansetron (Zofran Odt) 4 MG TAB.RAPDIS 1 TAB SL TID PRN n/v Oxycodone HCl 15 MG TABLET 1 TAB PO Q6H PRN PAIN (Reported) Promethazine HCl 25 MG TABLET 1 TAB PO Q6P PRN n/v Ropinirole HCl (Requip) 2 MG TABLET 1 TAB PO QPM RLS (Reported) (Raghav Curiel DO) Past History Travel History Traveled to [place] past 21 day No Medical History Any Pertinent Medical History? see below for history Neurological: NONE EENT: NONE Cardiovascular: hypertension Respiratory: NONE Gastrointestinal: GASTRITIS Hepatic: NONE Renal: urinary incontinence Musculoskeletal: fibromyalgia, spinal stenosis, DEGENERATIVE DISC DISEASE Psychiatric: anxiety, depression, previous suicide attempt Endocrine: hypothyroidism Blood Disorders: anemia Cancer(s): NONE ARC WELDER/Reproductive: NONE History of MRSA: No History of VRE: No History of CDIFF: No Surgical History Surgical History: laminectomy ( with complications), L knee replacement, C- section x 2 Psychosocial History Who do you live with Other (see notes) What is your primary language Croatian Tobacco Use: Current Daily Use Daily Tobacco Use Amount/Type: => 5 Cigarettes daily Family History Family History, If Any: FATHER (CABG). , Age 60+; Cause: Myocardial infarct. MOTHER FH: bladder cancer FH: dementia Hx Contributory? No (Laith Stone) Review of Systems Review of Systems Constitutional: Reports: no symptoms. EENTM: Reports: no symptoms. Respiratory: Reports: no symptoms. Cardiovascular: Reports: no symptoms. GI: Reports: see HPI, abdominal pain, nausea, vomiting. Genitourinary: Reports: no symptoms. Musculoskeletal: Reports: see HPI, back pain. Skin: Reports: no symptoms. Neurological/Psychological: Reports: no symptoms. Hematologic/Endocrine: Reports: no symptoms. Immunologic/Allergic: Reports: no symptoms. All Other Systems: Reviewed and Negative (Laith Stone) Physical Exam Physical Exam General Appearance: well developed/nourished, no apparent distress, alert, awake , obese Head: atraumatic, normal appearance Eyes: Bilateral: normal appearance, PERRL, EOMI. Ears, Nose, Throat, Mouth: hearing grossly normal, moist mucous membrane Neck: normal inspection, supple, full range of motion Respiratory: normal breath sounds, chest non-tender, no respiratory distress, lungs clear Cardiovascular: regular rate/rhythm, normal peripheral pulses Peripheral Pulses: 2+ radial (R), 2+ radial (L) Gastrointestinal: normal bowel sounds, soft, no organomegaly, tenderness ( diffuse) Back: normal inspection, normal range of motion, no vertebral tenderness Extremities: normal range of motion Neurologic/Psych: no motor/sensory deficits, awake, alert, oriented x 3, normal gait Skin: intact, normal color, warm/dry Core Measures ACS in differential dx? No Sepsis Present: No Sepsis Focused Exam Completed? No (Laith Stone) Progress Differential Diagnosis: appendicitis, biliary colic, bowel obstruction, cholecystitis, diverticulitis, gastritis, ischemic bowel, inflamm bowel dis, kidney stone, pancreatitis, peptic ulcer, PUD/GERD, SBO, threatened AB, UTI/ pyelo Plan of Care: Orders Procedure Date/time Status Discharge Patient 04/22 0029 Active Patient seen and evaluated. She is here for reevaluation of nausea vomiting diarrhea and abdominal pain. This is her third visit for this in the past few days. She states as soon as the IV meds wear off all her symptoms come back. She reports diffuse abdominal pain and multiple episodes of nausea vomiting and watery diarrhea. Vital signs are stable her abdomen is diffusely tender. She received a dose of IV Zofran in route without any improvement. IV Phenergan IV Dilaudid ordered IV fluids. Labs will be repeated. The CT scan from last visit showed mild diffuse colitis. Blood work is not showing any acute changes patient is still reporting symptoms again nausea and pain another dose of Dilaudid and now Reglan will be ordered. Spoke with Dr. Marquez from gastroenterology who recommends continuing symptomatic treatment. He states depending on cultures antibiotics may or may not be required. He does not feel a repeat CT scan is necessary. PT WILL be KEPT Emergency department for observation due to repeated visits for intractable nausea vomiting abdominal pain. Case discussed with Dr. Curiel HE agrees. She has been monitored in the emergency department. She has required additional doses of oral pain meds. There has been no vomiting here. Patient signed out to Dr. key pending additional monitoring. Diagnostic Imaging: Viewed by Me: CT Scan. Discussed w/RAD: CT Scan. Radiology Impression: CT scan from 2 days ago PATIENT: VADIM BRYSON PRESENT AGE: 53 PATIENT ACCOUNT NO: [id number] : 64 LOCATION: [facility] ORDERING PHYSICIAN: Liset OLIVERA SERVICE DATE: EXAM TYPE: CAT - CT ABD & PELVIS W IV CONTRAST EXAMINATION: CT ABDOMEN AND PELVIS WITH CONTRAST CLINICAL INFORMATION: Nausea, vomiting and diarrhea. Lower abdominal pain. COMPARISON: CT scan abdomen pelvis 08/09/[address] of chest 09/30/2016. TECHNIQUE: Multidetector volumetric imaging was performed of the abdomen and pelvis following IV administration of 94 mL of Optiray 320 intravenous contrast. Sagittal and coronal reformatted images were obtained on the technologist's workstation. DLP: 1236.23 mGy-cm FINDINGS: LUNG BASES: Stable 7 mm nodule in the right middle lobe unchanged since CAT scan 09/30/2016. LIVER, GALLBLADDER, AND BILIARY TREE: The liver is normal in size, shape, and attenuation. No focal hepatic lesion or biliary ductal dilatation is present. The gallbladder is contracted. No bile duct dilatation. PANCREAS: Unremarkable. SPLEEN: Unremarkable. ADRENAL GLANDS: Unremarkable. KIDNEYS AND URETERS: The kidneys are normal in size, shape, and attenuation. No hydronephrosis, hydroureter, or calculi seen. No perinephric stranding. BLADDER: Unremarkable. GASTROINTESTINAL TRACT: There is mild submucosal thickening diffusely from the cecum through the sigmoid colon with subtle pericolonic stranding around the colon. This is consistent with a mild colitis. There are a few diverticula of the sigmoid colon but no evidence of diverticulitis. Almost no stool seen within the lumen of the colon. No air in the bowel wall. No bowel obstruction. The small bowel loops are normal. The appendix is not seen. There is no inflammation of the mesentery. Mesentery: Within the subtle pericolonic stranding there is no inflammatory changes of the mesentery. No free air or free fluid. ABDOMINAL WALL : Neural stimulator probe in the subcutaneous tissue at the right side of the back. The probe itself passes through the left sacral neural foramina with the catheter tip in the presacral space. There is a subcutaneous fluid collection at the midline over the lumbosacral spine. Patient has a prior laminectomy at L4-L5 LYMPH NODES: Normal. VASCULAR: Unremarkable. PELVIC VISCERA: Unremarkable. OSSEOUS STRUCTURES: Status post laminectomy L4-L5. Degenerative spondylosis of the spine with multilevel disc height narrowing and endplate spurring of the vertebrae. IMPRESSION: There is a mild diffuse colitis of the colon. DICTATED BY : Zaid Poon MD DATE/TIME DICTATED:04/19/181716 WEBMETHODS ARCHITECT:JORGE DATE/TIME TRANSCRIBED:04/19/181716 CONFIDENTIAL, DO NOT COPY WITHOUT APPROPRIATE AUTHORIZATION. <Electronically signed in Other Vendor System> SIGNED BY: Zaid Poon MD 04/19/181733 Initial ED EKG: none Hand-Off Endorsed To: Rebel Key MD Endorsed Time: 2311 Pending: other (re-eval) (Laith Stone) Departure Departure Disposition: STILL A PATIENT Condition: Stable Clinical Impression Primary Impression: Intractable nausea and vomiting Qualifiers: Vomiting type: unspecified Qualified Code: R11.2 - Nausea with vomiting, unspecified Secondary Impressions: Gastroenteritis Referrals: Serena Wood MD (PCP/Family) Additional Instructions: Follow-up with your GI doctor. Continue Phenergan and Zofran as needed. Monitor symptoms return with any concerns. Departure Forms: Customer Survey General Discharge Information (Laith Stone) Departure Prescriptions: Current Visit Scripts Ondansetron (Zofran Odt) 1 TAB SL TID PRN n/v #10 TAB Promethazine HCl 1 TAB PO Q6P PRN n/v #20 TAB PA/WARNING ANALYST Co-Sign Statement Statement: ED Attending supervision documentation- [x] I saw and evaluated the patient. I have also reviewed all the pertinent lab results and diagnostic results. I agree with the findings and the plan of care as documented in the PA's/WARNING ANALYST's documentation. [] I have reviewed the ED Record and agree with the PA's/WARNING ANALYST's documentation. [] Additions or exceptions (if any) to the PAs/WARNING ANALYST's note and plan are summarized below: [] 04/21/18 Patient will be signed out to Dr. Key at 7 PM (Raghav Curiel DO) PA/WARNING ANALYST Co-Sign Statement Statement: ED Attending supervision documentation- x I saw and evaluated the patient. I have also reviewed all the pertinent lab results and diagnostic results. I agree with the findings and the plan of care as documented in the PA's/WARNING ANALYST's documentation. [] I have reviewed the ED Record and agree with the PA's/WARNING ANALYST's documentation. [] Additions or exceptions (if any) to the PAs/WARNING ANALYST's note and plan are summarized below: [] (Rebel Key MD) ED Attending Observation Initial Observation Note: I have seen and personally examined VADIM BRYSON on 04/21/18 at 1715. I agree with the current emergency department documentation. The disposition (admission or discharge) is uncertain at this time, she needs a period of observation for the following reason(s): [The patient needs observation for IV fluids, intractable nausea vomiting and diarrhea. She will be observed for ongoing episodes of vomiting] The ED Nurse caring for this patient has been personally informed as to what the patient is being observed for. (Raghav Curiel DO) Observation Discharge: I have reevaluated VADIM BRYSON on 04/22/18 at 0028. The patient is: (x): Stable for discharge (): To be admitted to Nursing Floor (): To be placed in Observation on Nursing Floor (): For transfer to other facility The patient was being observed for intractable nausea and vomiting As a result of that observation, I have determined safe for discharge home.. (Rebel Key MD) [x] I saw and evaluated the patient. I have also reviewed all the pertinent lab results and diagnostic results. I agree with the findings and the plan of care as documented in the PA's/WARNING ANALYST's documentation. [] I have reviewed the ED Record and agree with the PA's/WARNING ANALYST's documentation. [] Additions or exceptions (if any) to the PAs/WARNING ANALYST's note and plan are summarized below: [] 04/21/18 Patient will be signed out to Dr. Key at 7 PM (Raghav Curiel DO) PA/WARNING ANALYST Co-Sign Statement Statement: ED Attending supervision documentation- x I saw and evaluated the patient. I have also reviewed all the pertinent lab results and diagnostic results. I agree with the findings and the plan of care as documented in the PA's/WARNING ANALYST's documentation. [] I have reviewed the ED Record and agree with the PA's/WARNING ANALYST's documentation. [] Additions or exceptions (if any) to the PAs/WARNING ANALYST's note and plan are summarized below: [] (Rebel Key MD) ED Attending Observation Initial Observation Note: I have seen and personally examined VADIM BRYSON on 04/21/18 at 1715. I agree with the current emergency department documentation. The disposition (admission or discharge) is uncertain at this time, she needs a period of observation for the following reason(s): [The patient needs observation for IV fluids, intractable nausea vomiting and diarrhea. She will be observed for ongoing episodes of vomiting] The ED Nurse caring for this patient has been personally informed as to what the patient is being observed for. (Raghav Curiel DO) Observation Discharge: I have reevaluated VADIM BRYSON on 04/22/18 at 0028. The patient is: (x): Stable for discharge (): To be admitted to Nursing Floor (): To be placed in Observation on Nursing Floor (): For transfer to other facility The patient was being observed for intractable nausea and vomiting As a result of that observation, I have determined safe for discharge home.. (Rebel Key MD)
[2018-04-21 12:40] LABS: ABSOLUTE BASOPHIL COUNT 0 /CUMM (0.0-0.2); ABSOLUTE EOSINOPHIL COUNT 0.1 /CUMM (0.0-0.7); ABSOLUTE GRANULOCYTE CT 4.7 /CUMM (1.4-6.5); ABSOLUTE LYMPH COUNT 1.9 /CUMM (1.2-3.4); ABSOLUTE MONOCYTE COUNT 0.4 /CUMM (0.10-0.60); BASOPHIL % 0.5 % (0.0-2.0); EOSINOPHIL % 1.9 % (0-5); HEMATOCRIT 37.5 % (37-47); MEAN CORPUSCULAR HGB 30.5 PG (27.0-31.0); MEAN CORPUSCULAR HGB CONC 33.1 G/DL (33.0-37.0); MEAN CORPUSCULAR VOLUME 92.1 FL (81.0-99.0); MEAN PLATELET VOLUME 8.1 FL (7.4-10.4); PLATELET COUNT 172 /CUMM (130-400); RBC DISTRIBUTION WIDTH 15.6 % (11.5-14.5); RED BLOOD CELL CT 4.07 /CUMM (4.20-5.40); WHITE BLOOD CELL COUNT 7.2 /CUMM (4.8-10.8)
[2018-04-21] MEDS ORDERED: REQUIP2 M1 PO (17:18)
[2018-04-22 00:34] VITALS: BP 150/75
[2018-04-22] MEDS ORDERED: PROMETHAZINE HC25 M3 PO (00:39)
[2018-04-22] MEDS ORDERED: ZOFRAN ODT4 M1 SL ×2 (00:39→20:54)
[2018-04-22] MEDS ORDERED: CIPRO500 M1 PO (20:54)
[2018-04-22] MEDS ORDERED: PHENERGAN25 M2 PR (20:54)
[2018-04-22] MEDS ORDERED: FLAGYL500 MG PO (20:54)
[2018-04-22] MEDS ORDERED: LOMOTIL 2.5-0.1 EACH PO (20:54)
== END 2018-04-22 00:44 ==
LOC: ERH 11:28 → ERHI 17:06
PROVIDERS: Physician Assistant Medical
DX: R11.2 Nausea with vomiting, unspecified (principal); R19.7 Diarrhea, unspecified; K52.9 Noninfective gastroenteritis and colitis, unspecified; R10.9 Unspecified abdominal pain; M47.896 Other spondylosis, lumbar region
CPT/HCPCS: 81003; 87015; 87045; 87328; 87329; 87899; 87899-59; 96374; 96375; 96376; G0378; J0131; J2405; J2550; J2765